=== PATIENT | female | born 1985 ===

== ENCOUNTER 2019-07-09 02:19 | Inpatient (IN) | payer BC ==
[2019-07-09] MEDS ORDERED: Carboprost Tromethamine 250 MCG/1 ML Amp IM PRN (02:24)
[2019-07-09] MEDS ORDERED: Sodium Chloride 0.9% 2.5 ML Syringe FLUSH PRN (02:24)
[2019-07-09] MEDS ORDERED: Ondansetron 4 MG/2 ML SDV IVPUSH PRN (02:24)
[2019-07-09] MEDS ORDERED: Nalbuphine 10 MG/1 ML Vial IVPUSH PRN (02:24)
[2019-07-09] MEDS ORDERED: Lidocaine 1% 50 ML MDV INJECT PRN (02:24)
[2019-07-09] MEDS ORDERED: Butorphanol 1 MG/ML SDV IVPUSH PRN (02:24)
[2019-07-09] MEDS ORDERED: Tranexamic Acid 1,000 MG in Sodium Chloride 0.9% 100 ML IV PRN (02:24)
[2019-07-09] MEDS ORDERED: Sodium Chloride 0.9% 10 ML Syringe FLUSH PRN (02:24)
[2019-07-09] MEDS ORDERED: Methylergonovine 0.2 MG/1 ML Amp IM PRN (02:24)
[2019-07-09] MEDS ORDERED: Sodium Chloride 0.9% 10 ML SDV IV PRN (02:24)
[2019-07-09] MEDS ORDERED: Misoprostol 200 MCG Tab PO PRN (02:24)
[2019-07-09] MEDS ORDERED: Water For Irrigation,Sterile 1,000 ML Container IRR PRN (02:24)
[2019-07-09] MEDS ORDERED: Oxytocin/0.9 % Sodium Chloride 30 UNIT/500 ML BAG IV SCH (02:30)
[2019-07-09] MEDS ORDERED: Lactated Ringers 1,000 ML IV SCH (02:30)
[2019-07-09] MEDS ORDERED: Benzocaine/Menthol 20%-0.5% Spray 78 GM Cannister TOP PRN (03:32)
[2019-07-09] MEDS ORDERED: Acetaminophen 500 MG Tab PO PRN ×2 (03:32)
[2019-07-09] MEDS ORDERED: Ibuprofen 400 MG Tab PO PRN (03:32)
[2019-07-09] MEDS ORDERED: Witch Hazel Medicated Pads 40/Jar TOP PRN (03:32)
[2019-07-09] MEDS ORDERED: Docusate Sodium 100 MG Cap PO PRN (03:32)
[2019-07-09] MEDS ORDERED: Bisacodyl 10 MG Supp RECTAL PRN (03:32)
[2019-07-09] MEDS ORDERED: oxyCODONE 5 MG Tab PO PRN (03:32)
[2019-07-09] MEDS ORDERED: Ibuprofen 800 MG Tab PO PRN (03:32)
[2019-07-09] MEDS ORDERED: Lanolin 100% Cream 7 GM Tube TOP PRN (03:32)
--- NOTE | 2019-07-09 03:35 | PCM.LDHP ---
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: - Infectious Disease History Infectious Disease History: Reports: Chicken Pox Social & Family History - Family History Family Medical History: Noncontributory - Tobacco Use Smoking Status *Q: Never Smoker Second Hand Smoke Exposure: No - Caffeine Use Caffeine Use: Reports: Soda - Recreational Drug Use Recreational Drug Use: No H&P Review of Systems - Review of Systems: Review Of Systems: See Below General: Reports: No Symptoms HEENT: Reports: No Symptoms Pulmonary: Reports: No Symptoms Cardiovascular: Reports: No Symptoms Gastrointestinal: Reports: No Symptoms Genitourinary: Reports: No Symptoms Musculoskeletal: Reports: No Symptoms Skin: Reports: No Symptoms Psychiatric: Reports: No Symptoms Neurological: Reports: No Symptoms Hematologic/Lymphatic: Reports: No Symptoms Immunologic: Reports: No Symptoms L&D Exam - Exam Exam: See Below - Vital Signs Weight: 67.585 kg - OB Specific Contraction Intensity: Moderate to Strong Movement: Active Heart Tones: Present Presentation: Vertex - Cervantes Score Cervantes Score Cervix Position: Anterior Cervantes Score Consistency: Soft Cervantes Score Effacement: >80% Cervantes Score Dilation: > 5 cm Cervantes Score Infant's Station: -2 Cervantes Score Total: 11 - Exam General: Alert, Oriented HEENT: PERRLA, Conjunctiva Clear, EACs Clear, EOMI, Hearing Intact, Mucosa Moist & [place], Nares Patent, Normal Nasal Septum, Posterior Pharynx Clear, TMs Clear Neck: Supple, Trachea Midline Lungs: Clear to Auscultation, Normal Respiratory Effort Cardiovascular: Regular Rate, Regular Rhythm GI/Abdominal Exam: Normal Bowel Sounds, Soft, Non-Tender, No Organomegaly, No Distention, No Abnormal Bruit, No Mass, Pelvis Stable Rectal Exam: Normal Exam, Normal Rectal Tone Genitourinary: Normal external exam, Normal bimanual exam, Normal speculum exam Back Exam: Normal Inspection, Full Range of Motion Extremities: Normal Inspection, Normal Range of Motion, Non-Tender, No Pedal Edema, Normal Capillary Refill Skin: Warm, Dry, Intact Neurological: Cranial Nerves Intact, Reflexes Equal Bilateral Psychiatric: Alert, Normal Affect, Normal Mood - Patient Data Lab Results Last 24 hrs: Laboratory Results - last 24 hr 07/09/19 07/09/19 Range/Units 02:45 02:45 WBC 12.16 H (4.0-11.0) K/uL RBC 4.35 (4.30-5.90) M/uL Hgb 9.5 L (12.0-16.0) g/dL Hct 32.3 L (36.0-46.0) % MCV 74.3 L (80.0-98.0) fL MCH 21.8 L (27.0-32.0) pg MCHC 29.4 L (31.0-37.0) g/dL RDW Std Deviation 43.5 (28.0-62.0) fl RDW Coeff of Blake 16 H (11.0-15.0) % Plt Count 407 H (150-400) K/uL MPV 10.00 (7.40-12.00) fL Nucleated RBC % 0.9 /100WBC Nucleated RBCs # 0 K/uL Blood Type O POSITIVE Antibody Screen NEGATIVE Result Diagrams: 07/09/19 02:45 Problem List Initiated/Reviewed/Updated: Yes Orders Last 24hrs: Active Orders 24 hr Category Date Time Status Patient Status [ADT] Routine ADT 07/09/19 03:32 Ordered Heart Tones [RC] CONTINUOUS Care 07/09/19 02:24 Active Non Stress Test [RC] PER UNIT ROUTINE Care 07/09/19 02:24 Active May Shower [RC] ASDIRECTED Care 07/09/19 02:24 Active May Shower [RC] ASDIRECTED Care 07/09/19 03:32 Ordered Notify Provider [RC] PRN Care 07/09/19 02:24 Active Up ad [place] [RC] ASDIRECTED Care 07/09/19 02:24 Active Up ad [place] [RC] ASDIRECTED Care 07/09/19 03:32 Ordered Vaginal Exam [RC] PRN Care 07/09/19 02:24 Active Vital Signs [RC] PER UNIT ROUTINE Care 07/09/19 02:24 Active Vital Signs [RC] PER UNIT ROUTINE Care 07/09/19 03:32 Ordered Regular Diet [DIET] Diet 07/09/19 Breakfast Active HEMOGLOBIN/HEMATOCRIT,HH [HEME] Timed Lab 07/10/19 05:11 Ordered RPR (SYPHILIS SERO) W/ RFLX [REF] Routine Lab 07/09/19 02:45 Received Acetaminophen [Tylenol Extra Strength] Med 07/09/19 03:32 Ordered 1,000 mg PO Q4H PRN Acetaminophen [Tylenol Extra Strength] Med 07/09/19 03:32 Ordered 500 mg PO Q4H PRN Benzocaine/Menthol [Dermoplast Pain Relief 20%-0.5% Med 07/09/19 03:32 Ordered [place]] 78 gm TOP ASDIRECTED PRN Butorphanol [Stadol] Med 07/09/19 02:24 Active 1 mg IVPUSH Q1H PRN Carboprost Tromethamine [Hemabate DS] Med 07/09/19 02:24 Active 250 mcg IM ASDIRECTED PRN Docusate Sodium [Colace] Med 07/09/19 03:32 Ordered 100 mg PO BID PRN Ibuprofen [Motrin] Med 07/09/19 03:32 Ordered 400 mg PO Q4H PRN Ibuprofen [Motrin] Med 07/09/19 03:32 Ordered 800 mg PO Q6H PRN Lactated Ringers [Ringers, Lactated] 1,000 ml Med 07/09/19 02:30 Active IV ASDIRECTED Lanolin [Lansinoh HPA] Med 07/09/19 03:32 Ordered See Dose Instructions TOP ASDIRECTED PRN Lidocaine 1% [Xylocaine 1%] Med 07/09/19 02:24 Active 50 ml INJECT ONETIME PRN Methylergonovine [Methergine] Med 07/09/19 02:24 Active 0.2 mg IM ASDIRECTED PRN Nalbuphine [Nubain] Med 07/09/19 02:24 Active 10 mg IVPUSH Q1H PRN Ondansetron [Zofran] Med 07/09/19 02:24 Active 4 mg IVPUSH Q6H PRN Oxytocin/0.9 % Sodium Chloride [Oxytocin 30 Unit/500 ML Med 07/09/19 02:30 Active -NS] 30 unit in 500 ml IV TITRATE Sodium Chloride 0.9% [Normal Saline] Med 07/09/19 02:24 Active 10 ml IV ASDIRECTED PRN Sodium Chloride 0.9% [Saline Flush] Med 07/09/19 02:24 Active 10 ml FLUSH ASDIRECTED PRN Sodium Chloride 0.9% [Saline Flush] Med 07/09/19 02:24 Active 2.5 ml FLUSH ASDIRECTED PRN Tranexamic Acid [Cyklokapron] 1,000 mg Med 07/09/19 02:24 Active Sodium Chloride 0.9% [Normal Saline] 100 ml IV ONETIME Water For Irrigation,Sterile [Sterile Water for Med 07/09/19 02:24 Active Irrigation] 1,000 ml IRR ASDIRECTED PRN bisacodyL [Dulcolax] Med 07/09/19 03:32 Ordered 10 mg RECTAL ONETIME PRN miSOPROStoL [Cytotec] Med 07/09/19 02:24 Active 200 mcg PO ONETIME PRN oxyCODONE Med 07/09/19 03:32 Ordered 5 mg PO Q2H PRN witch Yris [Tucks] Med 07/09/19 03:32 Ordered 1 pad TOP ASDIRECTED PRN Assess Lochia [WOMSER] Per Unit Routine Ot 07/09/19 03:32 Ordered Assess Uterine Involution [WOMSER] Per Unit Routine Ot 07/09/19 03:32 Ordered Scalp Electrode [WOMSER] Per Unit Routine Ot 07/09/19 02:24 Ordered Peripheral IV Discontinue [OM.PC] Routine Ot 07/09/19 03:32 Ordered Peripheral IV Insertion Adult [OM.PC] Routine Ot 07/09/19 02:24 Ordered Resuscitation Status Routine Resus Stat 07/09/19 02:24 Ordered Medication Orders Acetaminophen (Tylenol Extra Strength) 500 mg PO Q4H PRN PRN Reason: Pain Acetaminophen (Tylenol Extra Strength) 1,000 mg PO Q4H PRN PRN Reason: Pain Benzocaine/Menthol (Dermoplast Pain Relief 20%-0.5% [place]) 78 gm TOP ASDIRECTED PRN PRN Reason: Perineal Comfort Measure Bisacodyl (Dulcolax) 10 mg RECTAL ONETIME PRN PRN Reason: Constipation Butorphanol Tartrate (Stadol) 1 mg IVPUSH Q1H PRN PRN Reason: Pain Carboprost Tromethamine (Hemabate Ds) 250 mcg IM ASDIRECTED PRN PRN Reason: Post Hemorrhage Docusate Sodium (Colace) 100 mg PO BID PRN PRN Reason: Constipation Emollient Ointment (Lansinoh Hpa) 0 gm TOP ASDIRECTED PRN PRN Reason: Sore Nipples Lactated Ringer's (Ringers, Lactated) 1,000 mls @ 150 mls/hr IV ASDIRECTED [facility] Last Admin: 07/09/19 02:44 Dose: 999 mls/hr Oxytocin/Sodium Chloride (Oxytocin 30 Unit/500 Ml-Ns) 30 unit in 500 mls @ 500 mls/hr IV TITRATE [facility] Tranexamic Acid 1,000 mg/ (Sodium Chloride) 110 mls @ 660 mls/hr IV ONETIME PRN PRN Reason: Bleeding Ibuprofen (Motrin) 400 mg PO Q4H PRN PRN Reason: Pain Ibuprofen (Motrin) 800 mg PO Q6H PRN PRN Reason: Pain Lidocaine HCl (Xylocaine 1%) 50 ml INJECT ONETIME PRN PRN Reason: Laceration repair Methylergonovine Maleate (Methergine) 0.2 mg IM ASDIRECTED PRN PRN Reason: Post Hemorrhage Misoprostol (Cytotec) 200 mcg PO ONETIME PRN PRN Reason: Post Hemorrhage Nalbuphine HCl (Nubain) 10 mg IVPUSH Q1H PRN PRN Reason: Pain (severe 7-10) Ondansetron HCl (Zofran) 4 mg IVPUSH Q6H PRN PRN Reason: Nausea/Vomiting Oxycodone HCl (Oxycodone) 5 mg PO Q2H PRN PRN Reason: Pain Sodium Chloride (Saline Flush) 10 ml FLUSH ASDIRECTED PRN PRN Reason: Keep Vein Open Sodium Chloride (Saline Flush) 2.5 ml FLUSH ASDIRECTED PRN PRN Reason: Keep Vein Open Sodium Chloride (Normal Saline) 10 ml IV ASDIRECTED PRN PRN Reason: IV Use Sterile Water (Sterile Water For Irrigation) 1,000 ml IRR ASDIRECTED PRN PRN Reason: delivery Witch Yris (Tucks) 1 pad TOP ASDIRECTED PRN PRN Reason: comfort care Assessment/Plan Comment:: Term in active labor.
--- NOTE | 2019-07-09 07:44 | OR ---
DELIVERY NOTE: DATE OF PROCEDURE: 07/09/2019 PRIMARY SURGEON: Neftaly Colindres MD INDICATIONS: Ms. Ferguson is a 33-year-old patient. She is para 2-0-0-2. She is followed in our service primarily by our nurse midwifery. She is term, 39+ weeks. GBS is negative. She is admitted in active labor with rupture of membranes. At the time of admission, she was 5, 90, vertex, and -2 station. DESCRIPTION OF PROCEDURE: The patient progressed rather fast. She did not have time to have the epidural anesthesia. She proceeded to complete-complete, and she was able to accomplish a normal spontaneous vaginal delivery, a male fetus, without any problem. The placenta delivered spontaneous, complete, and intact. There was no perineal laceration or vaginal laceration, and there was no need for episiotomy. Estimated blood loss was 300 to 350 mL. heart rate was category 1. There was no complication in the labor and delivery process. JAGJIT / SANTINO /[id number] MTDD
--- NOTE | 2019-07-09 08:51 | PCM.PNPP ---
- General Info Date of Service: 07/09/19 Admission Dx/Problem (Free Text): Patient Status Order with Admit Dx/Problem 07/09/19 02:24 Patient Status [ADT] Routine 07/09/19 03:32 Patient Status [ADT] Routine Admission Diagnosis/Problem Admission Diagnosis/Problem Tricia is a 33 yo S/P uncomplicated of term viable NBM. O pos, RE, GBS neg. Hemodynamically stable, AOx3. Verbalizes she is "so tired" but pain is well-controlled. Functional Status: Reports: Pain Controlled - Review of Systems General: Reports: No Symptoms HEENT: Reports: No Symptoms Pulmonary: Reports: No Symptoms Cardiovascular: Reports: No Symptoms Gastrointestinal: Reports: No Symptoms Genitourinary: Reports: No Symptoms Musculoskeletal: Reports: No Symptoms Skin: Reports: No Symptoms Neurological: Reports: No Symptoms Psychiatric: Reports: No Symptoms - General Info Date of Service: 07/09/19 - Patient Data Weight - Most Recent: 149 lb Lab Results - Last 24 Hours: Laboratory Results - last 24 hr 07/09/19 07/09/19 Range/Units 02:45 02:45 WBC 12.16 H (4.0-11.0) K/uL RBC 4.35 (4.30-5.90) M/uL Hgb 9.5 L (12.0-16.0) g/dL Hct 32.3 L (36.0-46.0) % MCV 74.3 L (80.0-98.0) fL MCH 21.8 L (27.0-32.0) pg MCHC 29.4 L (31.0-37.0) g/dL RDW Std Deviation 43.5 (28.0-62.0) fl RDW Coeff of Blake 16 H (11.0-15.0) % Plt Count 407 H (150-400) K/uL MPV 10.00 (7.40-12.00) fL Nucleated RBC % 0.9 /100WBC Nucleated RBCs # 0 K/uL Blood Type O POSITIVE Antibody Screen NEGATIVE Med Orders - Current: Current Medications Acetaminophen (Tylenol Extra Strength) 500 mg PO Q4H PRN PRN Reason: Pain Acetaminophen (Tylenol Extra Strength) 1,000 mg PO Q4H PRN PRN Reason: Pain Benzocaine/Menthol (Dermoplast Pain Relief 20%-0.5% [place]) 78 gm TOP ASDIRECTED PRN PRN Reason: Perineal Comfort Measure Bisacodyl (Dulcolax) 10 mg RECTAL ONETIME PRN PRN Reason: Constipation Butorphanol Tartrate (Stadol) 1 mg IVPUSH Q1H PRN PRN Reason: Pain Carboprost Tromethamine (Hemabate Ds) 250 mcg IM ASDIRECTED PRN PRN Reason: Post Hemorrhage Docusate Sodium (Colace) 100 mg PO BID PRN PRN Reason: Constipation Emollient Ointment (Lansinoh Hpa) 0 gm TOP ASDIRECTED PRN PRN Reason: Sore Nipples Lactated Ringer's (Ringers, Lactated) 1,000 mls @ 150 mls/hr IV ASDIRECTED [facility] Last Admin: 07/09/19 02:44 Dose: 999 mls/hr Oxytocin/Sodium Chloride (Oxytocin 30 Unit/500 Ml-Ns) 30 unit in 500 mls @ 500 mls/hr IV TITRATE [facility] Last Admin: 07/09/19 03:24 Dose: 500 mls/hr Tranexamic Acid 1,000 mg/ (Sodium Chloride) 110 mls @ 660 mls/hr IV ONETIME PRN PRN Reason: Bleeding Ibuprofen (Motrin) 400 mg PO Q4H PRN PRN Reason: Pain Ibuprofen (Motrin) 800 mg PO Q6H PRN PRN Reason: Pain Lidocaine HCl (Xylocaine 1%) 50 ml INJECT ONETIME PRN PRN Reason: Laceration repair Methylergonovine Maleate (Methergine) 0.2 mg IM ASDIRECTED PRN PRN Reason: Post Hemorrhage Misoprostol (Cytotec) 200 mcg PO ONETIME PRN PRN Reason: Post Hemorrhage Nalbuphine HCl (Nubain) 10 mg IVPUSH Q1H PRN PRN Reason: Pain (severe 7-10) Ondansetron HCl (Zofran) 4 mg IVPUSH Q6H PRN PRN Reason: Nausea/Vomiting Oxycodone HCl (Oxycodone) 5 mg PO Q2H PRN PRN Reason: Pain Sodium Chloride (Saline Flush) 10 ml FLUSH ASDIRECTED PRN PRN Reason: Keep Vein Open Sodium Chloride (Saline Flush) 2.5 ml FLUSH ASDIRECTED PRN PRN Reason: Keep Vein Open Sodium Chloride (Normal Saline) 10 ml IV ASDIRECTED PRN PRN Reason: IV Use Sterile Water (Sterile Water For Irrigation) 1,000 ml IRR ASDIRECTED PRN PRN Reason: delivery Cherri Arndt (Tucks) 1 pad TOP ASDIRECTED PRN PRN Reason: comfort care - Infant Interaction Disposition, : [place] to Nursery Feeding: Bottle Fed Infant, Continues to Breastfeed, Encouraged to Breastfeed Support Person: - Recovery Exam Fundal Tone: Firm Fundal Level: 1 Fingerbreadths Below Umbilicus Fundal Placement: Midline Lochia Amount: Moderate Lochia Color: Rubra/Red Perineum Description: Intact, Minimal Bruising/Swelling Episiotomy/Laceration: None Bladder Status: Voiding - Exam General: Alert, Oriented HEENT: Pupils Equal Neck: Supple Lungs: Clear to Auscultation, Normal Respiratory Effort Cardiovascular: Regular Rate, Regular Rhythm GI/Abdominal Exam: Normal Bowel Sounds, Soft, Non-Tender, No Organomegaly, No Distention, Other (Uterus firm, U-1) Extremities: Normal Inspection, Normal Range of Motion, Non-Tender, No Pedal Edema, Normal Capillary Refill Skin: Warm, Dry, Intact Wound/Incisions: Healing Well Neurological: No New Focal Deficit Psy/Mental Status: Alert, Normal Affect, Normal Mood - Problem List & Annotations (1) (normal spontaneous vaginal delivery) SNOMED Code(s): 85862478, 899106453 Code(s): O80 - ENCOUNTER FOR FULL-TERM UNCOMPLICATED DELIVERY Status: Acute Priority: High Current Visit: Yes - Problem List Review Problem List Initiated/Reviewed/Updated: Yes - Assessment Assessment:: Tricia is a 33 yo S/P uncomplicated of term viable NBM. O pos, RE, GBS neg. - Plan Plan:: Continue with normal course of care, .
[2019-07-10] MEDS: Acetaminophen 325 MG/10.15 ML ML PO PRN ×2 (02:30→08:30)
--- NOTE | 2019-07-10 08:36 | PCM.PNPP ---
- General Info Date of Service: 07/10/19 Admission Dx/Problem (Free Text): Patient Status Order with Admit Dx/Problem 07/09/19 02:24 Patient Status [ADT] Routine 07/09/19 03:32 Patient Status [ADT] Routine Admission Diagnosis/Problem Admission Diagnosis/Problem Tricia is a 33 yo S/P uncomplicated of term viable NBM. O pos, RE, GBS neg. Hemodynamically stable, AOx3. Verbalizes she is "so tired" but pain is well-controlled. Functional Status: Reports: Pain Controlled - Review of Systems General: Reports: No Symptoms HEENT: Reports: No Symptoms Pulmonary: Reports: No Symptoms Cardiovascular: Reports: No Symptoms Gastrointestinal: Reports: No Symptoms Genitourinary: Reports: No Symptoms Musculoskeletal: Reports: No Symptoms Skin: Reports: No Symptoms Neurological: Reports: No Symptoms Psychiatric: Reports: No Symptoms - General Info Date of Service: 07/10/19 - Patient Data Vital Signs - Most Recent: Last Vital Signs Temp 97.8 F 07/10/19 04:00 Pulse 96 07/10/19 04:00 Resp 16 07/10/19 04:00 BP 114/86 07/10/19 04:00 Pulse Ox 96 07/10/19 04:00 Weight - Most Recent: 149 lb I&O - Last 24 Hours: Intake & Output 07/09/19 07/10/19 07/10/19 22:59 06:59 14:59 Output Total 1000 1000 Balance -1000 -1000 Lab Results - Last 24 Hours: Laboratory Results - last 24 hr 07/10/19 Range/Units 05:46 Hgb 7.8 L (12.0-16.0) g/dL Hct 26.1 L (36.0-46.0) % Med Orders - Current: Current Medications Acetaminophen (Tylenol Extra Strength) 500 mg PO Q4H PRN PRN Reason: Pain Acetaminophen (Tylenol Extra Strength) 1,000 mg PO Q4H PRN PRN Reason: Pain Acetaminophen (Tylenol) 1,000 mg PO Q6H PRN PRN Reason: Pain/Fever Last Admin: 07/10/19 02:30 Dose: 1,000 mg Benzocaine/Menthol (Dermoplast Pain Relief 20%-0.5% [place]) 78 gm TOP ASDIRECTED PRN PRN Reason: Perineal Comfort Measure Bisacodyl (Dulcolax) 10 mg RECTAL ONETIME PRN PRN Reason: Constipation Butorphanol Tartrate (Stadol) 1 mg IVPUSH Q1H PRN PRN Reason: Pain Carboprost Tromethamine (Hemabate Ds) 250 mcg IM ASDIRECTED PRN PRN Reason: Post Hemorrhage Docusate Sodium (Colace) 100 mg PO BID PRN PRN Reason: Constipation Emollient Ointment (Lansinoh Hpa) 0 gm TOP ASDIRECTED PRN PRN Reason: Sore Nipples Lactated Ringer's (Ringers, Lactated) 1,000 mls @ 150 mls/hr IV ASDIRECTED [facility] Last Admin: 07/09/19 02:44 Dose: 999 mls/hr Oxytocin/Sodium Chloride (Oxytocin 30 Unit/500 Ml-Ns) 30 unit in 500 mls @ 500 mls/hr IV TITRATE [facility] Last Admin: 07/09/19 03:24 Dose: 500 mls/hr Tranexamic Acid 1,000 mg/ (Sodium Chloride) 110 mls @ 660 mls/hr IV ONETIME PRN PRN Reason: Bleeding Ibuprofen (Motrin) 400 mg PO Q4H PRN PRN Reason: Pain Ibuprofen (Motrin) 800 mg PO Q6H PRN PRN Reason: Pain Lidocaine HCl (Xylocaine 1%) 50 ml INJECT ONETIME PRN PRN Reason: Laceration repair Methylergonovine Maleate (Methergine) 0.2 mg IM ASDIRECTED PRN PRN Reason: Post Hemorrhage Misoprostol (Cytotec) 200 mcg PO ONETIME PRN PRN Reason: Post Hemorrhage Nalbuphine HCl (Nubain) 10 mg IVPUSH Q1H PRN PRN Reason: Pain (severe 7-10) Ondansetron HCl (Zofran) 4 mg IVPUSH Q6H PRN PRN Reason: Nausea/Vomiting Oxycodone HCl (Oxycodone) 5 mg PO Q2H PRN PRN Reason: Pain Sodium Chloride (Saline Flush) 10 ml FLUSH ASDIRECTED PRN PRN Reason: Keep Vein Open Sodium Chloride (Saline Flush) 2.5 ml FLUSH ASDIRECTED PRN PRN Reason: Keep Vein Open Sodium Chloride (Normal Saline) 10 ml IV ASDIRECTED PRN PRN Reason: IV Use Sterile Water (Sterile Water For Irrigation) 1,000 ml IRR ASDIRECTED PRN PRN Reason: delivery Cherri Arndt (Tucks) 1 pad TOP ASDIRECTED PRN PRN Reason: comfort care - Interaction Infant Disposition, : at Bedside Infant Interaction: Other (see below) (In bassinet at bedside) Feeding: Bottle Fed Infant, Continues to Breastfeed (Pumping, bottle-fed breast milk), Encouraged to Breastfeed Support Person: - Recovery Exam Fundal Tone: Firm Fundal Level: At Umbilicus Fundal Placement: Midline Lochia Amount: Small Lochia Color: Rubra/Red Perineum Description: Intact, Minimal Bruising/Swelling Episiotomy/Laceration: None Bladder Status: Palpable Urinary Elimination: Not Voiding (Unable to urinate independently. Herring catheter removed at 0600 today, awaiting void for discharge.) - Exam General: Alert, Oriented HEENT: Pupils Equal Neck: Supple Lungs: Clear to Auscultation, Normal Respiratory Effort Cardiovascular: Regular Rate, Regular Rhythm GI/Abdominal Exam: Normal Bowel Sounds, Soft, Non-Tender, No Organomegaly, No Distention Extremities: Normal Inspection, Normal Range of Motion, Non-Tender, No Pedal Edema, Normal Capillary Refill Skin: Warm, Dry, Intact Neurological: No New Focal Deficit Psy/Mental Status: Alert, Normal Affect, Normal Mood - Problem List & Annotations (1) (normal spontaneous vaginal delivery) SNOMED Code(s): 04047711, [id number] Code(s): O80 - ENCOUNTER FOR FULL-TERM UNCOMPLICATED DELIVERY Status: Acute Priority: High Current Visit: Yes (2) Acute urinary retention SNOMED Code(s): 266245799 Code(s): R33.8 - OTHER RETENTION OF URINE Status: Acute Priority: High Current Visit: Yes - Problem List Review Problem List Initiated/Reviewed/Updated: Yes - My Orders Last 24 Hours: My Active Orders 07/10/19 02:15 Acetaminophen [Tylenol] 1,000 mg PO Q6H PRN - Assessment Assessment:: Tricia is a 33 yo PPD1 S/P uncomplicated of term viable NBM. O pos , RE, GBS neg. - Plan Plan:: Continue with normal course of care, . Awaiting independent void prior to discharge re: urinary retention.
--- NOTE | 2019-07-10 08:44 | PCM.DCSUM1 ---
Discharge Summary - Hospital Course Diagnosis: Stroke: No - Discharge Data Discharge Date: 07/10/19 Discharge Disposition: Home, Self-Care 01 Condition: Good - Referral to Home Health Primary Care Physician: PCP None - Discharge Plan Referrals: [facility] [Outside] Stephanie Traore CNM [Mid-] - 08/19/19 2:15 pm - Discharge Summary/Plan Comment DC Time >30 min.: Yes - General Info Date of Service: 07/10/19 Functional Status: Reports: Pain Controlled - Review of Systems General: Reports: No Symptoms HEENT: Reports: No Symptoms Pulmonary: Reports: No Symptoms Cardiovascular: Reports: No Symptoms Gastrointestinal: Reports: No Symptoms Genitourinary: Reports: No Symptoms Musculoskeletal: Reports: No Symptoms Skin: Reports: No Symptoms Neurological: Reports: No Symptoms Psychiatric: Reports: No Symptoms - Patient Data Vitals - Most Recent: Last Vital Signs Temp 36.6 C 07/10/19 04:00 Pulse 96 07/10/19 04:00 Resp 16 07/10/19 04:00 BP 114/86 07/10/19 04:00 Pulse Ox 96 07/10/19 04:00 Weight - Most Recent: 67.585 kg I&O - Last 24 hours: Intake & Output 07/09/19 07/10/19 07/10/19 22:59 06:59 14:59 Output Total 1000 1000 Balance -1000 -1000 Lab Results - Last 24 hrs: Laboratory Results - last 24 hr 07/10/19 Range/Units 05:46 Hgb 7.8 L (12.0-16.0) g/dL Hct 26.1 L (36.0-46.0) % Med Orders - Current: Current Medications Acetaminophen (Tylenol Extra Strength) 500 mg PO Q4H PRN PRN Reason: Pain Acetaminophen (Tylenol Extra Strength) 1,000 mg PO Q4H PRN PRN Reason: Pain Acetaminophen (Tylenol) 1,000 mg PO Q6H PRN PRN Reason: Pain/Fever Last Admin: 07/10/19 08:30 Dose: 1,000 mg Benzocaine/Menthol (Dermoplast Pain Relief 20%-0.5% [place]) 78 gm TOP ASDIRECTED PRN PRN Reason: Perineal Comfort Measure Bisacodyl (Dulcolax) 10 mg RECTAL ONETIME PRN PRN Reason: Constipation Butorphanol Tartrate (Stadol) 1 mg IVPUSH Q1H PRN PRN Reason: Pain Carboprost Tromethamine (Hemabate Ds) 250 mcg IM ASDIRECTED PRN PRN Reason: Post Hemorrhage Docusate Sodium (Colace) 100 mg PO BID PRN PRN Reason: Constipation Emollient Ointment (Lansinoh Hpa) 0 gm TOP ASDIRECTED PRN PRN Reason: Sore Nipples Lactated Ringer's (Ringers, Lactated) 1,000 mls @ 150 mls/hr IV ASDIRECTED [facility] Last Admin: 07/09/19 02:44 Dose: 999 mls/hr Oxytocin/Sodium Chloride (Oxytocin 30 Unit/500 Ml-Ns) 30 unit in 500 mls @ 500 mls/hr IV TITRATE [facility] Last Admin: 07/09/19 03:24 Dose: 500 mls/hr Tranexamic Acid 1,000 mg/ (Sodium Chloride) 110 mls @ 660 mls/hr IV ONETIME PRN PRN Reason: Bleeding Ibuprofen (Motrin) 400 mg PO Q4H PRN PRN Reason: Pain Ibuprofen (Motrin) 800 mg PO Q6H PRN PRN Reason: Pain Lidocaine HCl (Xylocaine 1%) 50 ml INJECT ONETIME PRN PRN Reason: Laceration repair Methylergonovine Maleate (Methergine) 0.2 mg IM ASDIRECTED PRN PRN Reason: Post Hemorrhage Misoprostol (Cytotec) 200 mcg PO ONETIME PRN PRN Reason: Post Hemorrhage Nalbuphine HCl (Nubain) 10 mg IVPUSH Q1H PRN PRN Reason: Pain (severe 7-10) Ondansetron HCl (Zofran) 4 mg IVPUSH Q6H PRN PRN Reason: Nausea/Vomiting Oxycodone HCl (Oxycodone) 5 mg PO Q2H PRN PRN Reason: Pain Sodium Chloride (Saline Flush) 10 ml FLUSH ASDIRECTED PRN PRN Reason: Keep Vein Open Sodium Chloride (Saline Flush) 2.5 ml FLUSH ASDIRECTED PRN PRN Reason: Keep Vein Open Sodium Chloride (Normal Saline) 10 ml IV ASDIRECTED PRN PRN Reason: IV Use Sterile Water (Sterile Water For Irrigation) 1,000 ml IRR ASDIRECTED PRN PRN Reason: delivery Cherri Arndt (Tucks) 1 pad TOP ASDIRECTED PRN PRN Reason: comfort care - Exam General: Reports: Alert, Oriented HEENT: Reports: Pupils Equal, Pupils Reactive, EOMI, Mucous Membr. Moist/[place] Neck: Reports: Supple Lungs: Reports: Clear to Auscultation, Normal Respiratory Effort Cardiovascular: Reports: Regular Rate, Regular Rhythm GI/Abdominal Exam: Normal Bowel Sounds, Soft, Non-Tender, No Organomegaly, No Distention, No Abnormal Bruit, No Mass, Pelvis Stable (Female) Exam: Normal External Exam, Normal Speculum Exam, Normal Bimanual Exam Rectal (Female) Exam: Normal Exam, Normal Rectal Tone Back Exam: Reports: Normal Inspection, Full Range of Motion Extremities: Normal Inspection, Normal Range of Motion, Non-Tender, No Pedal Edema, Normal Capillary Refill Skin: Reports: Warm, Dry, Intact Wound/Incisions: Reports: Healing Well Neurological: Reports: No New Focal Deficit Psy/Mental Status: Reports: Alert, Normal Affect, Normal Mood
== END 2019-07-10 11:45 | disposition home or self-care (01) | DRG 560 ==
LOC: MW.OBCHECK 02:19 → MW.OB 02:19 → MW.OBCHECK 02:24 → MW.OB 02:24 → OBSVTOIN 03:23 → MW.OB 10:55
PROVIDERS: ADMIT Obstetrics & Gynecology; ATTEND Obstetrics & Gynecology
PROC: 10E0XZZ Delivery of Products of Conception, External Approach (ICD-10-PCS; principal; 2019-07-09)
DX: O80 Encounter for full-term uncomplicated delivery (principal); Z3A.39 39 weeks gestation of pregnancy; Z37.0 Single live birth
CPT/HCPCS: 36415; 51701; 51702; 59025; 59409; 85014; 85018; 85027; 86592; 86593; 86850; 86900; 86901; A9270-GY; J2590; J7120